=== PATIENT | female | born 1945 | race Caucasian/White ===

== ENCOUNTER → 2017-01-15 | Outpatient (CLI) | payer MEDICARE ==
--- NOTE | ~2017-01-15 | US136 ---
[facility] A Service of [facility] RADIOLOGY TEXT RESULTS PATIENT: ZA CHOWDHURY LOCATION: [facility] : 49 UNIT #: [id number] AGE: [address]: Harris Alvarado MD SEX: F ORDER DR: [id number] [facility] [address] [place], [place] [address] [id number] O MR#: [id number] Acc #: [id number] NAME: ZA CHOWDHURY. : 1945 SEX: F STUDY DATE/TIME: 01/15/2017 13:56 UNIT: [facility] ROOM: STUDY DESCRIPTION: US U/L Ext Art Study [facility] Attending Physician: Harris Alvarado M.D. Referring Physician: Harris Alvarado M.D. Ordering Physician: Harris Alvarado M.D. Primary Care Physician: Harris Alvarado M.D. MEDICAL IMAGING REPORT This report is preliminary unless electronic signature is present EXAM Bilateral ankle-brachial indices. INDICATIONS Bilateral calf cramping and pain for several years. Patient is a diabetic and also has a history of hypertension and hyperlipidemia. TECHNIQUE Sequential pressures were obtained through both lower extremities and pulse-volume recordings were generated. FINDINGS The patient's ankle-brachial index at the right dorsalis pedis artery is abnormal at 0.72. However, the remainder of the ankle-brachial indices are normal measuring 1.10 at the posterior tibial artery on the right, and 1.09 at the posterior tibial artery on the left. The ankle-brachial index of the dorsalis pedis artery on the left is 1.08. Patient also has a diminished toe-brachial index on the right at 0.51, it is normal on the left at 0.80. IMPRESSION The patient does have an abnormal ankle-brachial index at the dorsalis pedis artery on the right. Clinical significance is uncertain, but certainly, that number would be suggestive of multiple levels of arterial disease in that vascular distribution. However, the remainder of the patient's ankle-brachial indices are within normal limits. Toe to brachial index on the right is also diminished. I am uncertain if this reflects inflow disease or small vessel disease or a combination of both. Potentially CT angiography of the abdomen and pelvis with bilateral lower extremity runoff may be helpful for additional evaluation. Dictated by... Eryn Campbell M.D. [facility] A Service of [facility] RADIOLOGY TEXT RESULTS PATIENT: ZA CHOWDHURY LOCATION: [facility] : 47 UNIT #: [id number] AGE: [address]: Harris Alvarado MD SEX: F ORDER DR: THIS IS AN ELECTRONICALLY VERIFIED REPORT Eryn Campbell M.D. at 01/17/2017 4:51 PM ADE/cheng TD: 01/16/2017 17:00 JOB #: [id number] MEDICAL IMAGING REPORT Page 1 of 1 COPY
== END | disposition home or self-care (01) ==
LOC: CNIV 13:46
DX: I73.9 Peripheral vascular disease, unspecified (principal); R93.7 Abnormal findings on diagnostic imaging of other parts of musculoskeletal system
CPT/HCPCS: 93922